=== PATIENT | female | born 1955 | race Hispanic/Latino ===

== ENCOUNTER 2024-03-22 11:26 | Observation (INO) | payer MEDICARE ==
[~2024-03-22] VITALS: Ht 152.4 cm; Wt 65.3 kg
[~2024-03-22 11:26] MED LIST: ALENDRONATE SOD70 MG PO; LEVOTHYROXINE75 MCG PO; LIPITOR10 MG PO; LOSARTAN POTASS25 MG PO; METFORMIN HCL500 MG PO
[2024-03-22] MEDS: CEFAZOLIN SODIUM 2 GM ONE (12:43)
[2024-03-22] MEDS: DEXAMETHASONE SOD PHOS 10 MG/1 ML VIAL ONE (12:44)
[2024-03-22] MEDS: CELECOXIB 200 MG CAP ONE (12:44)
[2024-03-22] MEDS: GABAPENTIN 300 MG CAP ONE (12:44)
[2024-03-22] MEDS: LACTATED RINGER'S 1,000 ML ONE (12:45)
[2024-03-22] MEDS ORDERED: Vancomycin IV 500 MG ONE (13:48)
[2024-03-22] MEDS ORDERED: TRANEXAMIC ACID 20 ML ONE (13:48)
[2024-03-22] MEDS ORDERED: SODIUM CHLORIDE 0.9% 500ML 500 ML ONE (13:49)
[2024-03-22] MEDS ORDERED: ACETAMINOPHEN 650 MG SUPP PR PRN ×2 (14:30→15:30)
[2024-03-22] MEDS ORDERED: DIPHENHYDRAMINE HCL INJ 50 MG/ML VIAL IV PRN ×2 (14:30→15:30)
[2024-03-22] MEDS ORDERED: HYDROCODONE/APAP 5MG-325MG TAB PO PRN ×2 (14:30→15:30)
[2024-03-22] MEDS ORDERED: DOCUSATE SODIUM 100 MG CAP PO PRN ×2 (14:30→15:30)
[2024-03-22] MEDS ORDERED: HYDROCODONE/APAP 7.5MG-325MG 1 EA TAB PO PRN (14:30)
[2024-03-22] MEDS ORDERED: ONDANSETRON HCL INJ 2MG/ML 2ML 2 MG/ML VIAL IV PRN (14:30)
[2024-03-22] MEDS: FENTANYL CITRATE/PF 100MCG/2 ML INJ ONE (16:10)
[2024-03-22] MEDS ORDERED: ASPIRIN 325 MG TAB PO SCH (17:00)
[2024-03-22 17:25] VITALS: BP 101/67; PULSE 86; RESP 18; TEMP 97.3; O2SAT 98
[2024-03-22 17:35] VITALS: PULSE 89; RESP 18; O2SAT 96
[2024-03-22] MEDS: ONDANSETRON HCL INJ 2MG/ML 2ML 2 MG/ML VIAL IV PRN (17:36)
[2024-03-22] MEDS: HYDROCODONE/APAP 7.5MG-325MG 1 EA TAB PO PRN (17:37)
[2024-03-22] MEDS ORDERED: CELECOXIB 100 MG CAP PO SCH (18:00)
[2024-03-22] MEDS ORDERED: ATORVASTATIN CA40 MG PO (18:02)
[2024-03-22] MEDS: ROPIVACAINE/EPI/CLONIDINE/KET 50 ML SYRINGE INJ ONE (18:02)
[2024-03-22 18:05] VITALS: BP 101/67; PULSE 89; RESP 18; TEMP 97.3; O2SAT 96
[2024-03-22] MEDS: SODIUM CHLORIDE 0.9% 1000ML 1,000 ML IV SCH (18:21)
[2024-03-22] MEDS: ASPIRIN 325 MG TAB PO SCH (18:22)
[2024-03-22] MEDS: CELECOXIB 200 MG CAP PO SCH (18:22)
[2024-03-22 19:55] VITALS: PULSE 72; RESP 18; O2SAT 96
[2024-03-22 20:00] VITALS: BP 98/55; PULSE 73; RESP 16; TEMP 97.3; O2SAT 97
[2024-03-22 21:00] VITALS: BP 98/55; PULSE 73; RESP 16; TEMP 97.3; O2SAT 97
[2024-03-23] VITALS: BP 95/55; PULSE 61; RESP 16; TEMP 97.5; O2SAT 98
[2024-03-23 05:40] LABS: HEMATOCRIT 37.6 % (34.2-44.1); HEMOGLOBIN 12.4 g/dL (12.0-16.0)
[2024-03-23 05:58] VITALS: BP 107/60; PULSE 60; RESP 19; TEMP 97.3; O2SAT 98
[2024-03-23] MEDS ORDERED: ASPIRIN81 MG PO (07:35)
[2024-03-23 07:36] VITALS: PULSE 82; RESP 18; O2SAT 97
[2024-03-23 08:00] VITALS: BP 116/67; PULSE 72; RESP 19; TEMP 97.7; O2SAT 98
[2024-03-23 09:10] VITALS: BP 116/67; PULSE 72; RESP 19; TEMP 97.7; O2SAT 98
[2024-03-23] MEDS: LEVOTHYROXINE SODIUM 75 MCG TAB PO SCH (09:16)
[2024-03-23] MEDS ORDERED: ACETAMINOPHEN 1000 MG/100 ML IV PRN ×2 (14:30→15:30)
[2024-03-23] MEDS ORDERED: ATORVASTATIN 40 MG TAB PO SCH (21:00)
== END 2024-03-23 11:10 | disposition home health service (06) ==
LOC: OR 11:26 → PACU V 14:18 → MED/SURG 17:25
PROVIDERS: ADMIT Specialist; ATTEND Specialist
DX: M17.12 Unilateral primary osteoarthritis, left knee (principal); E11.9 Type 2 diabetes mellitus without complications; I10 Essential (primary) hypertension; Z79.84 Long term (current) use of oral hypoglycemic drugs; E03.9 Hypothyroidism, unspecified
CPT/HCPCS: 27447; 36415 ×2; 73560; 82948 ×2; 85014; 85018; 86850; 86900; 94799 ×2; 97116 ×2; 97161; 97530; C1713 ×2; C1776 ×2; G0378 ×2; J0690 ×3; J1100; J2405; J2795; J3010; J3370; J7030 ×2; J7040; J7121